=== PATIENT | male | born 1970 | race American Indian/Alaskan Native ===

== ENCOUNTER 2018-03-09 12:35 | Emergency (ER) | payer BC ==
[2018-03-09 13:00] VITALS: BMI 24.9
--- NOTE | 2018-03-09 13:11 | ED PDOC ---
Arrival/HPI - General Time Seen by Provider: 03/09/18 13:06 Historian: Patient - History of Present Illness Narrative History of Present Illness (Text): 03/09/18 13:07 47yo male with PMhx of hypertension and Diabetes present to ED for elevated BP and BS. Patient states he ran out of his medication over a month ago. States he couldn't afford it so he stopped getting it. He saw his Doctor today for a different medication and his BP was 160/100 and 424 BS. He otherwise denies headache, focal weakness, chest pain, dizziness, nausea, vomiting, polyuria/ polydispsia, slurred speech, any other complaint. Past Medical History - Provider Review Nursing Documentation Reviewed: Yes - Infectious Disease Hx of Infectious Diseases: None - Tetanus Immunization Tetanus Immunization: Up to Date - Cardiac Hx Hypertension: Yes - Endocrine/Metabolic Hx Diabetes Mellitus Type 1: Yes - Musculoskeletal/Rheumatological Hx Falls: No - Psychiatric Hx Depression: No Hx Emotional Abuse: No Hx Physical Abuse: No Hx Substance Use: No - Past Surgical History Past Surgical History: No Previous - Suicidal Assessment Feels Threatened In Home Enviroment: No Family/Social History - Physician Review Nursing Documentation Reviewed: Yes Family/Social History: Unknown Family HX Smoking Status: Former Smoker Hx Alcohol Use: Yes (OCCASSIONAl) Hx Substance Use: No Hx Substance Use Treatment: No Allergies/Home Meds Allergies/Adverse Reactions: Allergies No Known Allergies Allergy (Verified 03/09/18 13:38) Review of Systems - Physician Review All systems were reviewed & negative as marked: Yes - Review of Systems Constitutional: Other (Elevated BP and BS) Eyes: Normal ENT: Normal Respiratory: Normal Cardiovascular: Normal Gastrointestinal: Normal Genitourinary Male: Normal Musculoskeletal: Normal Skin: Normal Neurological: Normal Endocrine: Normal Hemo/Lymphatic: Normal Psychiatric: Normal Physical Exam Vital Signs Reviewed: Yes Vital Signs Temp Pulse Resp BP Pulse Ox 03/09/18 16:58 72 18 159/98 H 99 03/09/18 15:37 76 18 151/101 H 99 03/09/18 13:41 98.3 F 81 17 148/100 H 99 Temperature: Afebrile Blood Pressure: Normal Pulse: Regular Respiratory Rate: Normal Appearance: Positive for: Well-Appearing, Non-Toxic, Comfortable Pain Distress: None Mental Status: Positive for: Alert and Oriented X 3 - Systems Exam Head: Present: Atraumatic, Normocephalic Pupils: Present: PERRL Extroacular Muscles: Present: EOMI Conjunctiva: Present: Normal Mouth: Present: Moist Mucous Membranes Neck: Present: Normal Range of Motion Respiratory/Chest: Present: Clear to Auscultation, Good Air Exchange. No: Respiratory Distress, Accessory Muscle Use Cardiovascular: Present: Regular Rate and Rhythm, Normal S1, S2. No: Murmurs Abdomen: No: Tenderness, Distention, Peritoneal Signs Back: Present: Normal Inspection Upper Extremity: Present: Normal Inspection. No: Cyanosis, Edema Lower Extremity: Present: Normal Inspection. No: Edema Neurological: Present: GCS=15, CN II-XII Intact, Speech Normal Skin: Present: Warm, Dry, Normal Color. No: Rashes Psychiatric: Present: Alert, Oriented x 3, Normal Insight, Normal Concentration Medical Decision Making ED Course and Treatment: 03/09/18 20:31 PT in ED for stated history. He denied any somatic complaint. Neurologically intact. EKG NSR @81bpm Lab was unremarkable with exception of elevated BS which improved s/p Insulin was given. His BP improved slightingly with medication in ED. He states his PMD gave him new prescription for his BP and Diabetes and planed to get it fill when he leaves ED. He was DC home and referred to his PMD. - Lab Interpretations Lab Results: 03/09/18 13:50 03/09/18 13:50 Lab Results 03/09/18 14:56: POC Glucose (mg/dL) 291 H 03/09/18 13:50: PT 11.4, INR 1.00, APTT 32.5 03/09/18 13:50: Sodium 135, Potassium 4.1, Chloride 102, Carbon Dioxide 26, Anion Gap 12, BUN 14, Creatinine 1.3, Est GFR ( Amer) > 60, Est GFR (Non- Af Amer) 59, Random Glucose 371 H* D, Calcium 8.6, Magnesium 1.9, Total Bilirubin 0.5, AST 40, ALT 56, Alkaline Phosphatase 131 H, Lactate Dehydrogenase 496, Total Creatine Kinase 300 H, CK-MB (CK-2) 1.0, CK-MB (CK-2) % Cancelled, Troponin I < 0.01 D, Total Protein 6.5, Albumin 3.5, Globulin 3.0 , Albumin/Globulin Ratio 1.1 03/09/18 13:50: WBC 8.5, RBC 5.11, Hgb 16.0, Hct 42.4, MCV 83.0, MCH 31.3, MCHC 37.7 H, RDW 12.5, Plt Count 201, MPV 9.7, Gran % 54.5, Lymph % (Auto) 36.9 H, Lucas % (Auto) 6.4 H, Eos % (Auto) 1.3 L, Baso % (Auto) 0.9, Gran # 4.60, Lymph # (Auto) 3.1, Lucas # (Auto) 0.5, Eos # (Auto) 0.1, Baso # (Auto) 0.08 03/09/18 13:28: POC Glucose (mg/dL) 317 H - Medication Orders Current Medication Orders: Discontinued Medications Clonidine HCl (Catapres) 0.1 mg PO STAT STA Stop: 03/09/18 16:22 Last Admin: 03/09/18 16:30 Dose: 0.1 mg Insulin Human Regular (Humulin R) 6 units IVP ONCE STA Stop: 03/09/18 13:36 Last Admin: 03/09/18 14:10 Dose: 6 units IVP Administration Document 03/09/18 14:10 [place] (Rec: 03/09/18 14:11 [place] [id number]) Charges for Administration # of IVP Administrations 1 Disposition/Present on Arrival - Present on Arrival Any Indicators Present on Arrival: No History of DVT/PE: No History of Uncontrolled Diabetes: Yes Urinary Catheter: No History Surgical Site Infection Following: None - Disposition Have Diagnosis and Disposition been Completed?: Yes Diagnosis: Hyperglycemia, Hypertension Disposition: HOME/ ROUTINE Disposition Time: 16:45 Patient Plan: Discharge Condition: STABLE Discharge Instructions (ExitCare): Hyperglycemia, Adult (DC), High Blood Pressure Emergencies Additional Instructions: Follow up with your Doctor Take medication as directed Referrals: [facility] [place] [Outside] - Follow up with primary Forms: [employer] (Bulgarian)
[2018-03-09] MEDS ORDERED: Insulin Regular 1 UNITS/0.01 ML ML IVP STA (13:35)
[2018-03-09 13:44] VITALS: TEMP 98.3; O2SAT 99
[2018-03-09 14:33] LABS: BASO # 0.08 K/mm3 (0.0-2.0); BASO % 0.9 % (0.0-3.0); EOS # 0.1 (0.0-0.7); EOS % 1.3 % (1.5-5.0); GRAN # 4.6 (1.4-6.5); GRAN % 54.5 % (50.0-68.0); LYMPH # 3.1 (1.2-3.4); LYMPH % 36.9 % (22.0-35.0); MEAN CORPUSCULAR HEMOGLOBIN 31.3 pg (25.0-35.0); MEAN CORPUSCULAR HGB CONC 37.7 g/dl (31.0-37.0); MEAN PLATELET VOLUME 9.7 fl (7.0-11.0); MONO # 0.5 (0.1-0.6); MONO % 6.4 % (1.0-6.0); RBC 5.11 10^6/uL (3.5-6.1); RED CELL DISTRIBUTION WIDTH 12.5 % (11.5-14.5); WHITE BLOOD COUNT 8.5 10^3/ul (4.5-11.0)
[2018-03-09 14:41] LABS: PARTIAL THROMBOPLASTIN TIME 32.5 Seconds (25.1-36.5); PROTHROMBIN TIME 11.4 SECONDS (9.4-12.5)
[2018-03-09 14:52] LABS: ALB/GLOB RATIO 1.1 (1.1-1.8); ALBUMIN 3.5 g/dL (3.0-4.8); ALT/SGPT 56 U/L (7-56); AST/SGOT 40 U/L (17-59); BLOOD UREA NITROGEN 14 mg/dL (7-21); CALCIUM 8.6 mg/dL (8.4-10.5); GFR AFRICAN-AMERICAN > 60; GFR NON-AFRICAN AMERICAN 59
[2018-03-09 14:55] LABS: TROPONIN I < 0.01 ng/mL
[2018-03-09 15:38] VITALS: RESP 18
[2018-03-09 16:59] VITALS: BP 159/98; PULSE 72
--- NOTE | 2018-03-10 11:21 | CARD ---
APPROVED REPORT EKG Measurement Heart [id number] <Conclusion> Normal sinus rhythm with sinus arrhythmia Normal ECG
== END 2018-03-09 17:30 | disposition home or self-care (01) ==
LOC: ED 12:35
DX: E11.65 Type 2 diabetes mellitus with hyperglycemia (principal); I10 Essential (primary) hypertension; Z87.891 Personal history of nicotine dependence